=== PATIENT | female | born 1995 | race Caucasian/White ===

== ENCOUNTER 2016-10-22 07:54 | Emergency (ER) | payer OTHER ==
[2016-10-22] MEDS ORDERED: LIDOCAINE 1% MDV 20ML VIAL As Ordered ONE (08:28)
--- NOTE | 2016-10-22 09:24 | EDDOCDS ---
Physician Documentation [facility] Name: Leandro Dawson Age: 21 yrs Sex: Female : 1995 Arrival Date: 10/22/2016 Time: 07:54 Bed I4 / M4 Private MD: Juliette Greenberg Disposition: 10/22/16 08:57 Discharged to Home/Self Care. Impression: Localized swelling, mass and lump, unspecified - right labia, likely allergic reaction. - Condition is Stable. - Discharge Instructions: Allergies. - Prescriptions for Prednisone 20 mg Oral Tablet - take 2 tablet by ORAL route once daily for 5 days; 10 tablet. [place] 5- 325 mg Oral Tablet - take 1 tablet by ORAL route every 6 hours As needed MDD: 4 tabs; 12 tablet. - Medication Reconciliation, Local Pharmacy Hours form. - Follow up: Emergency Department; When: As needed; Reason: Worsening of conditions. Follow up: Private Physician; When: 2 - 3 days; Reason: Wound/Symptom Recheck, Recheck today's complaints, Continuance of care. - Problem is new. - Symptoms are unchanged. - Notes: YOUR SYMPTOMS ARE MOST LIKELY FROM A SENSITIVITY OR ALLERGIC REACTION. PLEASE TAKE THE MEDICATIONS PRESCRIBED DIRECTED. RETURN TO THE ER WITH ANY WORSENING SYMPTOMS. YOU CAN KEEP TAKING THE ANTIBIOTIC DIRECTED WELL, IN CASE THERE IS ANY INFECTION IN THE SKIN. Historical: - Allergies: no known allergies; - Home Meds: 1. antibiotic twice a day (Last dose: 10/22/2016) - PMHx: none; - PSHx: surgery as infant; - Social history: Smoking status: Patient states was never smoker of tobacco. No barriers to communication noted, The patient speaks fluent Central African, Speaks appropriately for age. - Family history: Not pertinent. - : The pt / caregiver states he / she is not on anticoagulants. Home medication list is obtained from the patient. - Exposure Risk Screening:: None identified. 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 6 in. (167.64 cm) (R); 09:01 BP 133 / 72; Pulse 100; Resp 18; Temp 98.9; Pulse Ox 98% ; Pain 5/10; jam1 08:01 Body Mass Index 18.56 (52.16 kg, 167.64 cm) kr3 MDM: 08:13 Lidocaine 10 mg/mL (1 %) 10 ml Infiltration once; to bedside, without epi please, thank dt4 you. ordered. 09:03 [facility] Payment Agreement was scanned into [employer] and attached to record. jp5 09:03 Financial registration complete. jp5 Administered Medications: 09:21 Not Given (cancelled per PA): Lidocaine 10 mg/mL (1 %) 10 ml Infiltration once; to [facility] bedside, without epi please, thank you. Signatures: Maria De Jesus Leary, RN RN [facility] Lorna PhippsRN RN kr3 Shira Krishnamurthy, PA-C PA-C dt4 Agata Mckinnon jp5 The chart was reviewed and I authenticate all verbal orders and agree with the evaluation and treatment provided.Attachments: 09:03 [facility] Payment Agreement jp5 MTDD
--- NOTE | 2016-10-22 09:24 | EDDOCDS ---
Nurse's Notes [facility] Name: Leandro Dawson Age: 21 yrs Sex: Female : 1995 Arrival Date: 10/22/2016 Time: 07:54 Bed I4 / M4 Private MD: Juliette Greenberg Diagnosis: Localized swelling, mass and lump, unspecified-right labia, likely allergic reaction Presentation: 10/22 07:58 Presenting complaint: Patient states: reports abscess in vagina which was suppose to be kr3 cut today but was delayed so wants it done here. Adult Sepsis Screening: The patient does not have new or worsening altered mentation. Patient's respiratory rate is less than 22. Systolic blood pressure is greater than 100. Patient has a qSOFA score of 0- Negative Sepsis Screen. Suicide/Homicide risk assessment- the patient denies having any suicidal and/or homicidal ideations and does not present with any other emotional, behavioral or mental health complaints. 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 Transition of care: patient was not received from another setting of care. 07:58 Acuity: MAX Level 4 kr3 07:58 Method Of Arrival: Walkin/Carried/Asstd kr3 Triage Assessment: 08:01 General: Appears in no apparent distress, comfortable, Behavior is cooperative. Pain: kr3 Location: 'right side of vagina' Pain currently is 4 out of 10 on a pain scale. Pt Declines HIV testing. Neurological: No deficits noted. Respiratory: Respiratory effort is even, unlabored. : Reports 'thing may be leaking'. Derm: Skin is normal. 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 antibiotic twice a day (Last dose: 10/22/2016) - PMHx: none; - PSHx: surgery as ; - Social history: Smoking status: Patient states was never smoker of tobacco. No barriers to communication noted, The patient speaks fluent Austrian, Speaks appropriately for age. - Family history: Not pertinent. - : The pt / caregiver states he / she is not on anticoagulants. Home medication list is obtained from the patient. - Exposure Risk Screening:: None identified. Screenin:53 Screening information is obtained from the patient. Primary language is Austrian. Fall jam1 risk: No risks identified. Assistance ADL's: requires no assistance with activities of daily living. Abuse/DV Screen: The patient / caregiver reports he/she is: not in a situation that causes fear, pain or injury. Nutritional screening: No deficits noted. Exposure Risk Screening: None identified. Advance Directives: Currently, there is no health care proxy. There is no active DNR order. There is no living will. There is no Power of Account Specialist. Advance directive information has not previously been placed in an [facility] medical record. Further advance directive information is declined. home support is adequate. Assessment: 08:45 General: Appears uncomfortable, Behavior is appropriate for age, cooperative. srm Neurological: No deficits noted. : swelling to lower right labia. Vital Signs: 08:01 BP 155 / 91; Pulse 120; Resp 16; Temp 98.4(O); Pulse Ox 98% on R/A; Weight 52.16 kg kr3 (R); Height 5 ft. 6 in. (167.64 cm) (R); 09:01 BP 133 / 72; Pulse 100; Resp 18; Temp 98.9; Pulse Ox 98% ; Pain 5/10; jam1 08:01 Body Mass Index 18.56 (52.16 kg, 167.64 cm) kr3 Vitals: 08:01 Log In Time: October 22, 2016 at 07:52. kr3 ED Course: 07:56 Patient visited by Nette Arana. mm15 07:56 Juliette Greenberg is Private Physician. mm15 07:56 Patient moved to Waiting mm15 08:00 Triage Initiated kr3 08:04 Patient moved to I4 / M4 kr3 08:05 Shira Krishnamurthy [facility]-C [facility]. dt4 08:05 Marybel Leger MD is Attending Physician. dt4 08:05 Patient visited by Shira Krishnamurthy PA-C. dt4 08:10 Pt greeted and oriented to ED. Patient advised of names of staff involved in care, jam1 location of call peterson, wait times and NPO status. Patient has correct armband on for positive identification. Placed in gown. Bed in low position. Call light in reach. Side rails up X 1. Adult w/ patient. Door closed. 08:45 The patient / caregiver is instructed regarding the plan of care and ED course. srm 08:45 No IV's were initiated during this patient's visit. No procedures done that require srm assistance. 09:03 [facility] Payment Agreement was scanned into [employer] and attached to record. jp5 Administered Medications: 09:21 Not Given (cancelled per PA): Lidocaine 10 mg/mL (1 %) 10 ml Infiltration once; to [facility] bedside, without epi please, thank you. Order Results: There are currently no results for this order. Outcome: 08:45 Discharge Assessment: Patient awake, alert and oriented x 3. No cognitive and/or srm functional deficits noted. Patient verbalized understanding of disposition instructions. patient administered narcotics - no. The following High Risk Discharge criteria are identified: None. Discharged to home ambulatory, with significant other. Condition: stable. Discharge instructions given to patient, Instructed on discharge instructions, follow up and referral plans. medication usage, Demonstrated understanding of instructions, medications, Pt was receptive of discharge instructions/ teaching. Prescriptions given X 2. No special radiology studies were completed. Property sent home with patient. 08:57 Discharge ordered by Provider. dt4 09:24 Patient left the ED. [facility] Signatures: Maria De Jesus Leary, RN RN Nichole Garcia, COLLEGE SPORTS ASSISTANT COLLEGE SPORTS ASSISTANT jam1 Lorna Phipps,RN RN [email or web address] Nette Arana mm15 Shira Krishnamurthy, PA-C PA-C dt4 Agata Mckinnon jp5 RYAN
--- NOTE | 2016-10-24 10:25 | EDDOCDS ---
Nurse's Notes [facility] Name: Leandro Dawson Age: 21 yrs Sex: Female : 1995 Arrival Date: 10/22/2016 Time: 07:54 Bed I4 / M4 Private MD: Juliette Greenberg Diagnosis: Localized swelling, mass and lump, unspecified-right labia, likely allergic reaction Presentation: 10/22 07:58 Presenting complaint: Patient states: reports abscess in vagina which was suppose to be kr3 cut today but was delayed so wants it done here. Adult Sepsis Screening: The patient does not have new or worsening altered mentation. Patient's respiratory rate is less than 22. Systolic blood pressure is greater than 100. Patient has a qSOFA score of 0- Negative Sepsis Screen. Suicide/Homicide risk assessment- the patient denies having any suicidal and/or homicidal ideations and does not present with any other emotional, behavioral or mental health complaints. 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 Transition of care: patient was not received from another setting of care. 07:58 Acuity: MAX Level 4 kr3 07:58 Method Of Arrival: Walkin/Carried/Asstd kr3 Triage Assessment: 08:01 General: Appears in no apparent distress, comfortable, Behavior is cooperative. Pain: kr3 Location: 'right side of vagina' Pain currently is 4 out of 10 on a pain scale. Pt Declines HIV testing. Neurological: No deficits noted. Respiratory: Respiratory effort is even, unlabored. : Reports 'thing may be leaking'. Derm: Skin is normal. 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 antibiotic twice a day (Last dose: 10/22/2016) - PMHx: none; - PSHx: surgery as ; - Social history: Smoking status: Patient states was never smoker of tobacco. No barriers to communication noted, The patient speaks fluent Bahamian, Speaks appropriately for age. - Family history: Not pertinent. - : The pt / caregiver states he / she is not on anticoagulants. Home medication list is obtained from the patient. - Exposure Risk Screening:: None identified. Screenin:53 Screening information is obtained from the patient. Primary language is Bahamian. Fall jam1 risk: No risks identified. Assistance ADL's: requires no assistance with activities of daily living. Abuse/DV Screen: The patient / caregiver reports he/she is: not in a situation that causes fear, pain or injury. Nutritional screening: No deficits noted. Exposure Risk Screening: None identified. Advance Directives: Currently, there is no health care proxy. There is no active DNR order. There is no living will. There is no Power of Student Activities Director. Advance directive information has not previously been placed in an [facility] medical record. Further advance directive information is declined. home support is adequate. Assessment: 08:45 General: Appears uncomfortable, Behavior is appropriate for age, cooperative. srm Neurological: No deficits noted. : swelling to lower right labia. Vital Signs: 08:01 BP 155 / 91; Pulse 120; Resp 16; Temp 98.4(O); Pulse Ox 98% on R/A; Weight 52.16 kg kr3 (R); Height 5 ft. 6 in. (167.64 cm) (R); 09:01 BP 133 / 72; Pulse 100; Resp 18; Temp 98.9; Pulse Ox 98% ; Pain 5/10; jam1 08:01 Body Mass Index 18.56 (52.16 kg, 167.64 cm) kr3 Vitals: 08:01 Log In Time: October 22, 2016 at 07:52. kr3 ED Course: 07:56 Patient visited by Nette Arana. mm15 07:56 Juliette Greenberg is Private Physician. mm15 07:56 Patient moved to Waiting mm15 08:00 Triage Initiated kr3 08:04 Patient moved to I4 / M4 kr3 08:05 Shira Krishnamur[facility]-C [facility]. dt4 08:05 Marybel Leger MD is Attending Physician. dt4 08:05 Patient visited by Shira Krishnamurthy PA-C. dt4 08:10 Pt greeted and oriented to ED. Patient advised of names of staff involved in care, jam1 location of call pteerson, wait times and NPO status. Patient has correct armband on for positive identification. Placed in gown. Bed in low position. Call light in reach. Side rails up X 1. Adult w/ patient. Door closed. 08:45 The patient / caregiver is instructed regarding the plan of care and ED course. srm 08:45 No IV's were initiated during this patient's visit. No procedures done that require srm assistance. 09:03 [facility] Payment Agreement was scanned into [employer] and attached to record. jp5 14:27 T-Sheet-- Draft Copy was scanned into [employer] and attached to record. gb Administered Medications: 09:21 Not Given (cancelled per PA): Lidocaine 10 mg/mL (1 %) 10 ml Infiltration once; to srm bedside, without epi please, thank you. Order Results: There are currently no results for this order. Outcome: 08:45 Discharge Assessment: Patient awake, alert and oriented x 3. No cognitive and/or srm functional deficits noted. Patient verbalized understanding of disposition instructions. patient administered narcotics - no. The following High Risk Discharge criteria are identified: None. Discharged to home ambulatory, with significant other. Condition: stable. Discharge instructions given to patient, Instructed on discharge instructions, follow up and referral plans. medication usage, Demonstrated understanding of instructions, medications, Pt was receptive of discharge instructions/ teaching. Prescriptions given X 2. No special radiology studies were completed. Property sent home with patient. 08:57 Discharge ordered by Provider. dt4 09:24 Patient left the ED. [facility] Signatures: Maria De Jesus Leary, RN RN srm Nichole Kim, WEB CONTENT DEVELOPER WEB CONTENT DEVELOPER jam1 Poonam De La Rosa, Reg Reg Lorna Wick,RN RN navjot3 Nette Arana mm15 Shira Krishnamurthy, PA-C PA-C dt4 Agata Mckinnon jp5 Chart Complete MTDD
--- NOTE | 2016-10-24 10:25 | EDDOCDS ---
Physician Documentation [facility] Name: Leandro Dawson Age: 21 yrs Sex: Female : 1995 Arrival Date: 10/22/2016 Time: 07:54 Bed I4 / M4 Private MD: Juliette Greenberg Disposition: 10/22/16 08:57 Discharged to Home/Self Care. Impression: Localized swelling, mass and lump, unspecified - right labia, likely allergic reaction. - Condition is Stable. - Discharge Instructions: Allergies. - Prescriptions for Prednisone 20 mg Oral Tablet - take 2 tablet by ORAL route once daily for 5 days; 10 tablet. [place] 5- 325 mg Oral Tablet - take 1 tablet by ORAL route every 6 hours As needed MDD: 4 tabs; 12 tablet. - Medication Reconciliation, Local Pharmacy Hours form. - Follow up: Emergency Department; When: As needed; Reason: Worsening of conditions. Follow up: Private Physician; When: 2 - 3 days; Reason: Wound/Symptom Recheck, Recheck today's complaints, Continuance of care. - Problem is new. - Symptoms are unchanged. - Notes: YOUR SYMPTOMS ARE MOST LIKELY FROM A SENSITIVITY OR ALLERGIC REACTION. PLEASE TAKE THE MEDICATIONS PRESCRIBED DIRECTED. RETURN TO THE ER WITH ANY WORSENING SYMPTOMS. YOU CAN KEEP TAKING THE ANTIBIOTIC DIRECTED WELL, IN CASE THERE IS ANY INFECTION IN THE SKIN. Historical: - Allergies: no known allergies; - Home Meds: 1. antibiotic twice a day (Last dose: 10/22/2016) - PMHx: none; - PSHx: surgery as infant; - Social history: Smoking status: Patient states was never smoker of tobacco. No barriers to communication noted, The patient speaks fluent Guamanian, Speaks appropriately for age. - Family history: Not pertinent. - : The pt / caregiver states he / she is not on anticoagulants. Home medication list is obtained from the patient. - Exposure Risk Screening:: None identified. 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 6 in. (167.64 cm) (R); 09:01 BP 133 / 72; Pulse 100; Resp 18; Temp 98.9; Pulse Ox 98% ; Pain 5/10; jam1 08:01 Body Mass Index 18.56 (52.16 kg, 167.64 cm) kr3 MDM: 08:13 Lidocaine 10 mg/mL (1 %) 10 ml Infiltration once; to bedside, without epi please, thank dt4 you. ordered. 09:03 [facility] Payment Agreement was scanned into [employer] and attached to record. jp5 09:03 Financial registration complete. jp5 14:27 T-Sheet-- Draft Copy was scanned into [employer] and attached to record. gb Administered Medications: 09:21 Not Given (cancelled per PA): Lidocaine 10 mg/mL (1 %) 10 ml Infiltration once; to [facility] bedside, without epi please, thank you. Signatures: Maria De Jesus Leary, RN RN [facility] Poonam De La Rosa, Reg Reg Lorna Phipps RN RN kr3 Shira Krishnamurthy, PA-C PA-C dt4 Agata Mckinnon jp5 The chart was reviewed and I authenticate all verbal orders and agree with the evaluation and treatment provided.Attachments: 09:03 [facility] Payment Agreement jp5 14:27 T-Sheet-- Draft Copy gb Chart Complete MTDD
--- NOTE | 2016-10-24 10:25 | EDDOCDS ---
Physician Documentation [facility] Name: Leandro Dawson Age: 21 yrs Sex: Female : 1995 Arrival Date: 10/22/2016 Time: 07:54 Bed I4 / M4 Private MD: Juliette Greenberg Disposition: 10/22/16 08:57 Discharged to Home/Self Care. Impression: Localized swelling, mass and lump, unspecified - right labia, likely allergic reaction. - Condition is Stable. - Discharge Instructions: Allergies. - Prescriptions for Prednisone 20 mg Oral Tablet - take 2 tablet by ORAL route once daily for 5 days; 10 tablet. [place] 5- 325 mg Oral Tablet - take 1 tablet by ORAL route every 6 hours As needed MDD: 4 tabs; 12 tablet. - Medication Reconciliation, Local Pharmacy Hours form. - Follow up: Emergency Department; When: As needed; Reason: Worsening of conditions. Follow up: Private Physician; When: 2 - 3 days; Reason: Wound/Symptom Recheck, Recheck today's complaints, Continuance of care. - Problem is new. - Symptoms are unchanged. - Notes: YOUR SYMPTOMS ARE MOST LIKELY FROM A SENSITIVITY OR ALLERGIC REACTION. PLEASE TAKE THE MEDICATIONS PRESCRIBED DIRECTED. RETURN TO THE ER WITH ANY WORSENING SYMPTOMS. YOU CAN KEEP TAKING THE ANTIBIOTIC DIRECTED WELL, IN CASE THERE IS ANY INFECTION IN THE SKIN. Historical: - Allergies: no known allergies; - Home Meds: 1. antibiotic twice a day (Last dose: 10/22/2016) - PMHx: none; - PSHx: surgery as infant; - Social history: Smoking status: Patient states was never smoker of tobacco. No barriers to communication noted, The patient speaks fluent Turkish, Speaks appropriately for age. - Family history: Not pertinent. - : The pt / caregiver states he / she is not on anticoagulants. Home medication list is obtained from the patient. - Exposure Risk Screening:: None identified. 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 6 in. (167.64 cm) (R); 09:01 BP 133 / 72; Pulse 100; Resp 18; Temp 98.9; Pulse Ox 98% ; Pain 5/10; jam1 08:01 Body Mass Index 18.56 (52.16 kg, 167.64 cm) kr3 MDM: 08:13 Lidocaine 10 mg/mL (1 %) 10 ml Infiltration once; to bedside, without epi please, thank dt4 you. ordered. 09:03 [facility] Payment Agreement was scanned into [employer] and attached to record. jp5 09:03 Financial registration complete. jp5 14:27 T-Sheet-- Draft Copy was scanned into [employer] and attached to record. gb Administered Medications: 09:21 Not Given (cancelled per PA): Lidocaine 10 mg/mL (1 %) 10 ml Infiltration once; to [facility] bedside, without epi please, thank you. Signatures: Maria De Jesus Leary, RN RN [facility] Poonam De La Rosa, Reg Reg Lorna Phipps RN RN kr3 Shira Krishnamurthy, PA-C PA-C dt4 Agata Mckinnon jp5 The chart was reviewed and I authenticate all verbal orders and agree with the evaluation and treatment provided.Attachments: 09:03 [facility] Payment Agreement jp5 14:27 T-Sheet-- Draft Copy gb Chart Complete MTDD
== END 2016-10-22 09:24 | disposition home or self-care (01) ==
LOC: M ED 07:54
DX: Z76.0 Encounter for issue of repeat prescription (principal)

== ENCOUNTER 2016-10-25 19:31 | Emergency (ER) | payer OTHER ==
[2016-10-25] MEDS ORDERED: LIDOCAINE 1% MDV 20ML VIAL As Ordered ONE (20:21)
[2016-10-25] MEDS ORDERED: NORCO, ANEXSIA 5/325MG TABLET (HYDROcodone/ACETAMINOPHEN) As Ordered ONE (21:05)
[2016-10-25] MEDS ORDERED: BACTRIM 160MG/800MG DS TAB As Ordered ONE (21:05)
[2016-10-25 21:16] LABS: BASO # 0.1 K/mm3 (0.0-0.2); BASO % 0.9 % (0.0-1.0); EOS % 0.4 % (0.0-3.0); LARGE UNSTAINED CELL # 0.1 K/mm3 (0.0-0.4); LARGE UNSTAINED CELL % 0.9 % (0.0-4.0); LYMPH # 1.7 K/mm3 (1.5-6.5); LYMPH % 11.5 % (24.0-44.0); MEAN CORPUSCULAR HEMOGLOBIN 27.4 pg (27.0-33.0); MEAN CORPUSCULAR HGB CONC 33.6 g/dl (32.0-36.5); MEAN CORPUSCULAR VOLUME 81.8 fl (80.0-96.0); MONO # 0.8 K/mm3 (0.0-0.8); NEUTROPHILS # 10.7 K/mm3 (1.8-7.7); NEUTROPHILS % 80.3 % (36.0-66.0); PLATELET COUNT, AUTOMATED 339 k/mm3 (150-450); RED CELL DISTRIBUTION WIDTH 13.7 % (11.5-14.5); WHITE BLOOD COUNT 13.3 K/mm3 (4.0-10.0)
[2016-10-25 21:34] LABS: ANION GAP 8 MEQ/L (8-16); BLOOD UREA NITROGEN 11 MG/DL (7-18); CALCIUM LEVEL 9.6 MG/DL (8.5-10.1); CARBON DIOXIDE LEVEL 29 MEQ/L (21-32); CHLORIDE LEVEL 105 MEQ/L (98-107); CREATININE FOR GFR 0.97 MG/DL (0.55-1.02); GLOMERULAR FILTRATION RATE > 60.0 (>60); GLUCOSE, FASTING 105 MG/DL (70-105); POTASSIUM SERUM 3.7 MEQ/L (3.5-5.1); SODIUM LEVEL 142 MEQ/L (136-145)
[2016-10-25] MEDS ORDERED: NORCO 5/325MG TABLET (BULK) As Ordered ONE (22:09)
--- NOTE | 2016-10-25 22:14 | EDDOCDS ---
Physician Documentation [facility] Name: Leandro Dawson Age: 21 yrs Sex: Female : 1995 Arrival Date: 10/25/2016 Time: 19:31 Bed I4 / M4 Private MD: Juliette Greenberg Disposition: 10/25/16 22:02 Discharged to Home/Self Care. Impression: Cutaneous abscess of groin - RIGHT LABIA. - Condition is Stable. - Discharge Instructions: Abscess. - Prescriptions for [place] 5- 325 mg Oral Tablet - take 1 tablet by ORAL route every 6 hours As needed MDD: 4 tabs; 16 tablet. Bactrim DS 800- 160 mg Oral Tablet - take 1 tablet by ORAL route every 12 hours for 10 days; 20 tablet. - Medication Reconciliation, Local Pharmacy Hours form. - Follow up: RUTH[facility] Barry; When: 2 - 3 days; Reason: Recheck today's complaints, Continuance of care. - Problem is new. - Symptoms have improved. - Notes: STOP USING PREDNISONE, START BACTRIM, CONTINUE WITH NORCO, USE WARM BATHES 3 TIMES PER DAY, FOLLOW UP WITH MARY SETHI OB, DR COPPOLA WAS CONSULTED REGARDING YOUR CASE, RETURN TO THE ER IF THE SYMPTOMS WORSEN OR BECOME CONCERNING Historical: - Allergies: no known allergies; - Home Meds: 1. prednisone 20 mg Oral tab 2 tabs per day for 5 days 2. [place] 5-325 mg Oral tab 1 tab every 6 hours as needed - PMHx: none; - PSHx: surgery as infant; - Social history: Smoking status: Patient states was never smoker of tobacco. No barriers to communication noted, The patient speaks fluent Mongolian, Speaks appropriately for age. - Family history: Not pertinent. - : The pt / caregiver states he / she is not on anticoagulants. Home medication list is obtained from pill bottles. - Exposure Risk Screening:: None identified. 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 6 in. (167.64 cm) (R); 20:52 BP 137 / 70; Pulse 115; Resp 20; Temp 98.9; Pulse Ox 95% ; Pain 6/10; ajs 22:01 BP 134 / 72; Pulse 82; Resp 18; Temp 98.9; Pulse Ox 95% ; Pain 0/10; ajs 19:32 Body Mass Index 18.56 (52.16 kg, 167.64 cm) dd6 MDM: 20:19 Lidocaine 10 mg/mL (1 %) 10 ml Infiltration once; to bedside ordered. ck7 20:19 Set up pelvic ordered. ck7 20:55 IV Saline Lock ordered. ck7 20:55 NS 0.9% 1000 ml IV at bolus once ordered. ck7 20:55 HYDROcodone-acetaminophen 5 mg-325 mg 1 tabs PO once ordered. ck7 20:55 Trimethoprim-Sulfamethoxazole 160 mg-800 mg (DS) 1 tabs PO once ordered. ck7 20:57 CBC with Diff Ordered. EDMS 20:57 MED Profile Ordered. EDMS 21:36 CBC with Diff Reviewed. ck7 21:36 MED Profile Reviewed. ck7 22:03 HYDROcodone-acetaminophen 4 pack- 5 mg-325 mg 1 packets PO Per package directions; ck7 Dispense with patient. 1 po q4h prn for pain ordered. Administered Medications: 21:09 Drug: NS 0.9% 1000 ml [sodium chloride 0.9 % intravenous solution] Route: IV; Rate: kas2 bolus; Site: left antecubital; 22:12 Follow up: IV Status: Completed infusion; IV Intake: 500ml kas2 21:09 Drug: HYDROcodone-acetaminophen 1 tabs [hydrocodone 5 mg-acetaminophen 325 mg tablet (1 kas2 tabs)] Route: PO; 21:09 Drug: Trimethoprim-Sulfamethoxazole 1 tabs [sulfamethoxazole 800 mg-trimethoprim 160 mg kas2 tablet (1 tabs)] Route: PO; 22:11 Drug: HYDROcodone-acetaminophen 4 pack- 1 packets [hydrocodone 5 mg-acetaminophen 325 nn1 mg tablet (1 tabs)] {Co-Signature: kas2 (Kendra Hilton RN).} Route: PO; Signatures: Dispatcher [employer] EDMS Patricia Yanes RN RN ld5 Chato Noble, SLIM-C RPA-Cck7 Kendra Hilton RN RN kas2 Mali Rdz RN1 Kendra Hilton RN kas2 MARAD
--- NOTE | 2016-10-25 22:14 | EDDOCDS ---
Nurse's Notes [facility] Name: Leandro Dawson Age: 21 yrs Sex: Female : 1995 Arrival Date: 10/25/2016 Time: 19:31 Bed I4 / M4 Private MD: Juliette Greenberg Diagnosis: Cutaneous abscess of groin-RIGHT LABIA Presentation: 10/25 19:38 Presenting complaint: Patient states: Seen here Friday and diagnosed with reaction ld5 to condom. Presents to ER with increasing vaginal pain. "The meds they gave me aren't working". Pt reports being seen at [facility] on Friday and was supposed to go in on Friday for "surgery for an abscess". [facility] was closed on Friday due to weather so pt came here on Friday and was told it was not an abscess but instead an irritation from a condom. Adult Sepsis Screening: The patient does not have new or worsening altered mentation. Patient's respiratory rate is less than 22. Systolic blood pressure is greater than 100. Patient has a qSOFA score of 0- Negative Sepsis Screen. Suicide/Homicide risk assessment- the patient denies having any suicidal and/or homicidal ideations and does not present with any other emotional, behavioral or mental health complaints. Status: The patient is a dependent. Transition of care: patient was not received from another setting of care. 19:38 Acuity: MAX Level 4 ld5 19:38 Method Of Arrival: Walkin/Carried/Asstd ld5 Triage Assessment: 19:41 General: Appears in no apparent distress. Pain: Location: groin Pain currently is 5 out ld5 of 10 on a pain scale. HIV screening NA for this visit Offered previously. Neurological: Level of Consciousness is awake, alert. Respiratory: Airway is patent Respiratory effort is even, unlabored. 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 prednisone 20 mg Oral tab 2 tabs per day for 5 days 2. [place] 5-325 mg Oral tab 1 tab every 6 hours as needed - PMHx: none; - PSHx: surgery as ; - Social history: Smoking status: Patient states was never smoker of tobacco. No barriers to communication noted, The patient speaks fluent Russian, Speaks appropriately for age. - Family history: Not pertinent. - : The pt / caregiver states he / she is not on anticoagulants. Home medication list is obtained from pill bottles. - Exposure Risk Screening:: None identified. Screenin:24 Screening information is obtained from the patient. Fall risk: No risks identified. kas2 Assistance ADL's: requires no assistance with activities of daily living. Abuse/DV Screen: The patient / caregiver reports he/she is: not in a situation that causes fear, pain or injury. Nutritional screening: No deficits noted. Advance Directives: Currently, there is no health care proxy. There is no active DNR order. There is no living will. There is no Power of Hand Packer/Packager. home support is adequate. Assessment: 20:21 General: Appears in no apparent distress, uncomfortable, well nourished, well groomed, kas2 Behavior is appropriate for age, cooperative. Pain: Location: pelvis and groin Pain currently is 6 out of 10 on a pain scale. Neurological: Level of Consciousness is awake, alert, Oriented to person, place. Respiratory: Airway is patent Respiratory effort is even, unlabored, Respiratory pattern is regular, symmetrical. : Swelling noted on labia. Derm: Skin is intact, Skin is dry, Skin is pink, warm & dry. Skin temperature is warm. Musculoskeletal: Range of motion intact in all extremities. 21:33 General: Patient laying in bed with at bedside. States pain in vaginal area is kas2 decreased to 3/10. Appears comfortable. No distress noted. Call peterson within reach. Will continue to monitor.. Vital Signs: 19:32 BP 161 / 82; Pulse 112; Resp 18 S; Temp 98.1(O); Pulse Ox 99% on R/A; Weight 52.16 kg dd6 (R); Height 5 ft. 6 in. (167.64 cm) (R); 20:52 BP 137 / 70; Pulse 115; Resp 20; Temp 98.9; Pulse Ox 95% ; Pain 6/10; ajs 22:01 BP 134 / 72; Pulse 82; Resp 18; Temp 98.9; Pulse Ox 95% ; Pain 0/10; ajs 19:32 Body Mass Index 18.56 (52.16 kg, 167.64 cm) dd6 Vitals: 19:32 Log In Time: October 25, 2016 at 19:30. dd6 ED Course: 19:32 Patient visited by Ronny Vann PCA. dd6 19:32 Juliette Greenberg is Private Physician. dd6 19:32 Patient moved to Waiting dd6 19:33 Patient moved to Pre RCE dd6 19:39 Triage Initiated ld5 19:42 Patient visited by Patricia Yanes,SUPA. ld5 19:44 Patient visited by Patricia Yanes RN. ld5 20:05 Patient moved to Triage 1 jo3 20:06 Chato Noble RPA-C is PHCP. ck7 20:06 Gregory Vazquez DO is Attending Physician. ck7 20:06 Patient visited by Chato Noble RPA-C. ck7 20:16 Patient moved to I4 / M4 jo3 20:25 Patient visited by Kendra Hilton RN. kas2 20:37 Patient visited by Kendra Hilton RN. kas2 20:53 Patient visited by Yessi Wiggins. ajs 21:07 MED Profile Sent. ajs 21:07 CBC with Diff Sent. ajs 21:09 Inserted saline lock: 22 gauge in left antecubital area and blood collected. The kas2 patient tolerated the procedure well. No procedures done that require assistance. 21:10 Patient visited by Kendra Hilton RN. kas2 21:34 Patient visited by Kendra Hilton RN. kas2 22:01 Patient visited by Yessi Wiggins. ajs 22:01 Arsenio Villegas, OB is Referral Physician. ck7 22:11 The patient / caregiver is instructed regarding the plan of care and ED course. kas2 22:11 Discontinued IV bleeding controlled, pressure dressing applied, No redness/swelling at kas2 site. Administered Medications: 21:09 Drug: NS 0.9% 1000 ml [sodium chloride 0.9 % intravenous solution] Route: IV; Rate: kas2 bolus; Site: left antecubital; 22:12 Follow up: IV Status: Completed infusion; IV Intake: 500ml kas2 21:09 Drug: HYDROcodone-acetaminophen 1 tabs [hydrocodone 5 mg-acetaminophen 325 mg tablet (1 kas2 tabs)] Route: PO; 21:09 Drug: Trimethoprim-Sulfamethoxazole 1 tabs [sulfamethoxazole 800 mg-trimethoprim 160 mg kas2 tablet (1 tabs)] Route: PO; 22:11 Drug: HYDROcodone-acetaminophen 4 pack- 1 packets [hydrocodone 5 mg-acetaminophen 325 nn1 mg tablet (1 tabs)] {Co-Signature: kas2 (Kendra Hilton RN).} Route: PO; Intake: 22:12 IV: 500.00ml; Total: 500.00ml. kas2 Order Results: Lab Order: CBC with Diff; SPEC'M 10/25/16 21:02 Test: WHITE BLOOD COUNT; Value: 13.3; Range: 4.0-10.0; Abnormal: Above high normal; Units: K/mm3; Status: F Test: RED BLOOD COUNT; Value: 5.09; Range: 4.00-5.40; Units: M/mm3; Status: F Test: HEMOGLOBIN; Value: 14.0; Range: 12.0-16.0; Units: g/dl; Status: F Test: HEMATOCRIT; Value: 41.6; Range: 36.0-47.0; Units: %; Status: F Test: MEAN CORPUSCULAR VOLUME; Value: 81.8; Range: 80.0-96.0; Units: fl; Status: F Test: MEAN CORPUSCULAR HEMOGLOBIN; Value: 27.4; Range: 27.0-33.0; Units: pg; Status: F Test: MEAN CORPUSCULAR HGB CONC; Value: 33.6; Range: 32.0-36.5; Units: g/dl; Status: F Test: RED CELL DISTRIBUTION WIDTH; Value: 13.7; Range: 11.5-14.5; Units: %; Status: F Test: PLATELET COUNT, AUTOMATED; Value: 339; Range: 150-450; Units: k/mm3; Status: F Test: NEUTROPHILS %; Value: 80.3; Range: 36.0-66.0; Abnormal: Above high normal; Units: %; Status: F Test: LYMPH %; Value: 11.5; Range: 24.0-44.0; Abnormal: Below low normal; Units: %; Status: F Test: MONO %; Value: 6.0; Range: 0.0-5.0; Abnormal: Above high normal; Units: %; Status: F Test: EOS %; Value: 0.4; Range: 0.0-3.0; Units: %; Status: F Test: BASO %; Value: 0.9; Range: 0.0-1.0; Units: %; Status: F Test: LARGE UNSTAINED CELL %; Value: 0.9; Range: 0.0-4.0; Units: %; Status: F Test: NEUTROPHILS #; Value: 10.7; Range: 1.8-7.7; Abnormal: Above high normal; Units: K/mm3; Status: F Test: LYMPH #; Value: 1.7; Range: 1.5-6.5; Units: K/mm3; Status: F Test: MONO #; Value: 0.8; Range: 0.0-0.8; Units: K/mm3; Status: F Test: EOS #; Value: 0.0; Range: 0.0-0.50; Units: K/mm3; Status: F Test: BASO #; Value: 0.1; Range: 0.0-0.2; Units: K/mm3; Status: F Test: LARGE UNSTAINED CELL #; Value: 0.1; Range: 0.0-0.4; Units: K/mm3; Status: F Lab Order: MED Profile; SPEC'M 10/25/16 21:02 Test: GLUCOSE, FASTING; Value: 105; Range: 70-105; Units: MG/DL; Status: F Test: BLOOD UREA NITROGEN; Value: 11; Range: 7-18; Units: MG/DL; Status: F Test: CREATININE FOR GFR; Value: 0.97; Range: 0.55-1.02; Units: MG/DL; Status: F Test: GLOMERULAR FILTRATION RATE; Value: > 60.0; Range: >60; Status: F Test: SODIUM LEVEL; Value: 142; Range: 136-145; Units: MEQ/L; Status: F Test: POTASSIUM SERUM; Value: 3.7; Range: 3.5-5.1; Units: MEQ/L; Status: F Test: CHLORIDE LEVEL; Value: 105; Range: 98-107; Units: MEQ/L; Status: F Test: CARBON DIOXIDE LEVEL; Value: 29; Range: 21-32; Units: MEQ/L; Status: F Test: ANION GAP; Value: 8; Range: 8-16; Units: MEQ/L; Status: F Test: CALCIUM LEVEL; Value: 9.6; Range: 8.5-10.1; Units: MG/DL; Status: F Test Note: ; Units are mL/min/1.73 m2 Chronic Kidney Disease Staging per NKF: Stage I & II GFR >=60 Normal to Mildly Decreased Stage III GFR 30-59 Moderately Decreased Stage IV GFR 15-29 Severely Decreased Stage V GFR <15 Very Little GFR Left ESRD GFR <15 on 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 ck7 22:10 Discharge Assessment: patient administered narcotics - yes. Pt provided with safe kas2 discharge. The following High Risk Discharge criteria are identified: None. Discharged to home ambulatory, with significant other. Condition: good Condition: stable Condition: improved. No special radiology studies were completed. Property :Personal belongings accompany Pt. 22:13 Patient left the ED. kas2 Signatures: Jewell Lopez,RN RN jo3 Ronny Vann, KIAN HOOD MAKER dd6 Patricia YanesRN SUPA [email or web address] Yessi iWggins Christopher, RPA-C RPA-Cck7 Mali RdzRN RN [email or web address] Kendra Hilton RN RN kas2 Kendra landis2 Corrections: (The following items were deleted from the chart) 19:44 19:38 Presenting complaint: Patient states: Seen here Friday and diagnosed with ld5 infection due to reaction to condom. Presents to ER with increasing vaginal pain. "The meds they gave me aren't working" ld5 MTDD
--- NOTE | 2016-10-27 23:14 | EDDOCDS ---
Physician Documentation [facility] Name: Leandro Dawson Age: 21 yrs Sex: Female : 1995 Arrival Date: 10/25/2016 Time: 19:31 Bed I4 / M4 Private MD: Juliette Greenberg Disposition: 10/25/16 22:02 Discharged to Home/Self Care. Impression: Cutaneous abscess of groin - RIGHT LABIA. - Condition is Stable. - Discharge Instructions: Abscess. - Prescriptions for [place] 5- 325 mg Oral Tablet - take 1 tablet by ORAL route every 6 hours As needed MDD: 4 tabs; 16 tablet. Bactrim DS 800- 160 mg Oral Tablet - take 1 tablet by ORAL route every 12 hours for 10 days; 20 tablet. - Medication Reconciliation, Local Pharmacy Hours form. - Follow up: RUTHY Barry; When: 2 - 3 days; Reason: Recheck today's complaints, Continuance of care. - Problem is new. - Symptoms have improved. - Notes: STOP USING PREDNISONE, START BACTRIM, CONTINUE WITH NORCO, USE WARM BATHES 3 TIMES PER DAY, FOLLOW UP WITH MARY SETHI OB, DR COPPOLA WAS CONSULTED REGARDING YOUR CASE, RETURN TO THE ER IF THE SYMPTOMS WORSEN OR BECOME CONCERNING Historical: - Allergies: no known allergies; - Home Meds: 1. prednisone 20 mg Oral tab 2 tabs per day for 5 days 2. [place] 5-325 mg Oral tab 1 tab every 6 hours as needed - PMHx: none; - PSHx: surgery as ; - Social history: Smoking status: Patient states was never smoker of tobacco. No barriers to communication noted, The patient speaks fluent Cymro, Speaks appropriately for age. - Family history: Not pertinent. - : The pt / caregiver states he / she is not on anticoagulants. Home medication list is obtained from pill bottles. - Exposure Risk Screening:: None identified. 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 6 in. (167.64 cm) (R); 20:52 BP 137 / 70; Pulse 115; Resp 20; Temp 98.9; Pulse Ox 95% ; Pain 6/10; ajs 22:01 BP 134 / 72; Pulse 82; Resp 18; Temp 98.9; Pulse Ox 95% ; Pain 0/10; ajs 19:32 Body Mass Index 18.56 (52.16 kg, 167.64 cm) dd6 MDM: 20:19 Lidocaine 10 mg/mL (1 %) 10 ml Infiltration once; to bedside ordered. ck7 20:19 Set up pelvic ordered. ck7 20:55 IV Saline Lock ordered. ck7 20:55 NS 0.9% 1000 ml IV at bolus once ordered. ck7 20:55 HYDROcodone-acetaminophen 5 mg-325 mg 1 tabs PO once ordered. ck7 20:55 Trimethoprim-Sulfamethoxazole 160 mg-800 mg (DS) 1 tabs PO once ordered. ck7 20:57 CBC with Diff Ordered. EDMS 20:57 MED Profile Ordered. EDMS 21:36 CBC with Diff Reviewed. ck7 21:36 MED Profile Reviewed. ck7 22:03 HYDROcodone-acetaminophen 4 pack- 5 mg-325 mg 1 packets PO Per package directions; ck7 Dispense with patient. 1 po q4h prn for pain ordered. 22:35 [facility] Payment Agreement was scanned into [employer] and attached to record. [facility] 22:35 Financial registration complete. [facility] 10/26 07:42 T-Sheet-- Draft Copy was scanned into [employer] and attached to record. [facility] Administered Medications: 10/25 21:09 Drug: NS 0.9% 1000 ml [sodium chloride 0.9 % intravenous solution] Route: IV; Rate: kas2 bolus; Site: left antecubital; 22:12 Follow up: IV Status: Completed infusion; IV Intake: 500ml kas2 21:09 Drug: HYDROcodone-acetaminophen 1 tabs [hydrocodone 5 mg-acetaminophen 325 mg tablet (1 kas2 tabs)] Route: PO; 21:09 Drug: Trimethoprim-Sulfamethoxazole 1 tabs [sulfamethoxazole 800 mg-trimethoprim 160 mg kas2 tablet (1 tabs)] Route: PO; 22:11 Drug: HYDROcodone-acetaminophen 4 pack- 1 packets [hydrocodone 5 mg-acetaminophen 325 nn1 mg tablet (1 tabs)] {Co-Signature: kas2 (Kendra Hilton RN).} Route: PO; Signatures: Dispatcher [employer] Patricia Friedman,RN RN ld5 Chato Noble, DALLASC RPA-Cck7 Olimpia Scott Kim, RN RN kas2 Marybel Smallwood Nikkole RN nn1 Kendra landis2 The chart was reviewed and I authenticate all verbal orders and agree with the evaluation and treatment provided.Attachments: 22:35 [facility] Payment Agreement gjb 10/26 07:42 T-Sheet-- Draft Copy [facility] Chart Complete MTDD
--- NOTE | 2016-10-27 23:14 | EDDOCDS ---
Physician Documentation [facility] Name: Leandro Dawson Age: 21 yrs Sex: Female : 1995 Arrival Date: 10/25/2016 Time: 19:31 Bed I4 / M4 Private MD: Juliette Greenberg Disposition: 10/25/16 22:02 Discharged to Home/Self Care. Impression: Cutaneous abscess of groin - RIGHT LABIA. - Condition is Stable. - Discharge Instructions: Abscess. - Prescriptions for [place] 5- 325 mg Oral Tablet - take 1 tablet by ORAL route every 6 hours As needed MDD: 4 tabs; 16 tablet. Bactrim DS 800- 160 mg Oral Tablet - take 1 tablet by ORAL route every 12 hours for 10 days; 20 tablet. - Medication Reconciliation, Local Pharmacy Hours form. - Follow up: RUTHY Barry; When: 2 - 3 days; Reason: Recheck today's complaints, Continuance of care. - Problem is new. - Symptoms have improved. - Notes: STOP USING PREDNISONE, START BACTRIM, CONTINUE WITH NORCO, USE WARM BATHES 3 TIMES PER DAY, FOLLOW UP WITH MARY SETHI OB, DR COPPOLA WAS CONSULTED REGARDING YOUR CASE, RETURN TO THE ER IF THE SYMPTOMS WORSEN OR BECOME CONCERNING Historical: - Allergies: no known allergies; - Home Meds: 1. prednisone 20 mg Oral tab 2 tabs per day for 5 days 2. [place] 5-325 mg Oral tab 1 tab every 6 hours as needed - PMHx: none; - PSHx: surgery as ; - Social history: Smoking status: Patient states was never smoker of tobacco. No barriers to communication noted, The patient speaks fluent Ghanaian, Speaks appropriately for age. - Family history: Not pertinent. - : The pt / caregiver states he / she is not on anticoagulants. Home medication list is obtained from pill bottles. - Exposure Risk Screening:: None identified. 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 6 in. (167.64 cm) (R); 20:52 BP 137 / 70; Pulse 115; Resp 20; Temp 98.9; Pulse Ox 95% ; Pain 6/10; ajs 22:01 BP 134 / 72; Pulse 82; Resp 18; Temp 98.9; Pulse Ox 95% ; Pain 0/10; ajs 19:32 Body Mass Index 18.56 (52.16 kg, 167.64 cm) dd6 MDM: 20:19 Lidocaine 10 mg/mL (1 %) 10 ml Infiltration once; to bedside ordered. ck7 20:19 Set up pelvic ordered. ck7 20:55 IV Saline Lock ordered. ck7 20:55 NS 0.9% 1000 ml IV at bolus once ordered. ck7 20:55 HYDROcodone-acetaminophen 5 mg-325 mg 1 tabs PO once ordered. ck7 20:55 Trimethoprim-Sulfamethoxazole 160 mg-800 mg (DS) 1 tabs PO once ordered. ck7 20:57 CBC with Diff Ordered. EDMS 20:57 MED Profile Ordered. EDMS 21:36 CBC with Diff Reviewed. ck7 21:36 MED Profile Reviewed. ck7 22:03 HYDROcodone-acetaminophen 4 pack- 5 mg-325 mg 1 packets PO Per package directions; ck7 Dispense with patient. 1 po q4h prn for pain ordered. 22:35 [facility] Payment Agreement was scanned into [employer] and attached to record. [facility] 22:35 Financial registration complete. [facility] 10/26 07:42 T-Sheet-- Draft Copy was scanned into [employer] and attached to record. [facility] Administered Medications: 10/25 21:09 Drug: NS 0.9% 1000 ml [sodium chloride 0.9 % intravenous solution] Route: IV; Rate: kas2 bolus; Site: left antecubital; 22:12 Follow up: IV Status: Completed infusion; IV Intake: 500ml kas2 21:09 Drug: HYDROcodone-acetaminophen 1 tabs [hydrocodone 5 mg-acetaminophen 325 mg tablet (1 kas2 tabs)] Route: PO; 21:09 Drug: Trimethoprim-Sulfamethoxazole 1 tabs [sulfamethoxazole 800 mg-trimethoprim 160 mg kas2 tablet (1 tabs)] Route: PO; 22:11 Drug: HYDROcodone-acetaminophen 4 pack- 1 packets [hydrocodone 5 mg-acetaminophen 325 nn1 mg tablet (1 tabs)] {Co-Signature: kas2 (Kendra Hilton RN).} Route: PO; Signatures: Dispatcher [employer] Patricia Friedman,RN RN ld5 Chato Noble, DALLASC RPA-Cck7 Olimpia Scott Kim, RN RN kas2 Marybel Smallwood Nikkole RN nn1 Kendra landis2 The chart was reviewed and I authenticate all verbal orders and agree with the evaluation and treatment provided.Attachments: 22:35 [facility] Payment Agreement gjb 10/26 07:42 T-Sheet-- Draft Copy [facility] Chart Complete MTDD
--- NOTE | 2016-10-27 23:14 | EDDOCDS ---
Nurse's Notes [facility] Name: Leandro Dawson Age: 21 yrs Sex: Female : 1995 Arrival Date: 10/25/2016 Time: 19:31 Bed I4 / M4 Private MD: Juliette Greenberg Diagnosis: Cutaneous abscess of groin-RIGHT LABIA Presentation: 10/25 19:38 Presenting complaint: Patient states: Seen here Friday and diagnosed with reaction ld5 to condom. Presents to ER with increasing vaginal pain. "The meds they gave me aren't working". Pt reports being seen at [place] on Friday and was supposed to go in on Friday for "surgery for an abscess". [facility] was closed on Friday due to weather so pt came here on Friday and was told it was not an abscess but instead an irritation from a condom. Adult Sepsis Screening: The patient does not have new or worsening altered mentation. Patient's respiratory rate is less than 22. Systolic blood pressure is greater than 100. Patient has a qSOFA score of 0- Negative Sepsis Screen. Suicide/Homicide risk assessment- the patient denies having any suicidal and/or homicidal ideations and does not present with any other emotional, behavioral or mental health complaints. Status: The patient is a dependent. Transition of care: patient was not received from another setting of care. 19:38 Acuity: MAX Level 4 ld5 19:38 Method Of Arrival: Walkin/Carried/Asstd ld5 Triage Assessment: 19:41 General: Appears in no apparent distress. Pain: Location: groin Pain currently is 5 out ld5 of 10 on a pain scale. HIV screening NA for this visit Offered previously. Neurological: Level of Consciousness is awake, alert. Respiratory: Airway is patent Respiratory effort is even, unlabored. 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 prednisone 20 mg Oral tab 2 tabs per day for 5 days 2. [place] 5-325 mg Oral tab 1 tab every 6 hours as needed - PMHx: none; - PSHx: surgery as ; - Social history: Smoking status: Patient states was never smoker of tobacco. No barriers to communication noted, The patient speaks fluent Swiss, Speaks appropriately for age. - Family history: Not pertinent. - : The pt / caregiver states he / she is not on anticoagulants. Home medication list is obtained from pill bottles. - Exposure Risk Screening:: None identified. Screenin:24 Screening information is obtained from the patient. Fall risk: No risks identified. kas2 Assistance ADL's: requires no assistance with activities of daily living. Abuse/DV Screen: The patient / caregiver reports he/she is: not in a situation that causes fear, pain or injury. Nutritional screening: No deficits noted. Advance Directives: Currently, there is no health care proxy. There is no active DNR order. There is no living will. There is no Power of Water Purifier Operator. home support is adequate. Assessment: 20:21 General: Appears in no apparent distress, uncomfortable, well nourished, well groomed, kas2 Behavior is appropriate for age, cooperative. Pain: Location: pelvis and groin Pain currently is 6 out of 10 on a pain scale. Neurological: Level of Consciousness is awake, alert, Oriented to person, place. Respiratory: Airway is patent Respiratory effort is even, unlabored, Respiratory pattern is regular, symmetrical. : Swelling noted on labia. Derm: Skin is intact, Skin is dry, Skin is pink, warm & dry. Skin temperature is warm. Musculoskeletal: Range of motion intact in all extremities. 21:33 General: Patient laying in bed with at bedside. States pain in vaginal area is kas2 decreased to 3/10. Appears comfortable. No distress noted. Call peterson within reach. Will continue to monitor.. Vital Signs: 19:32 BP 161 / 82; Pulse 112; Resp 18 S; Temp 98.1(O); Pulse Ox 99% on R/A; Weight 52.16 kg dd6 (R); Height 5 ft. 6 in. (167.64 cm) (R); 20:52 BP 137 / 70; Pulse 115; Resp 20; Temp 98.9; Pulse Ox 95% ; Pain 6/10; ajs 22:01 BP 134 / 72; Pulse 82; Resp 18; Temp 98.9; Pulse Ox 95% ; Pain 0/10; ajs 19:32 Body Mass Index 18.56 (52.16 kg, 167.64 cm) dd6 Vitals: 19:32 Log In Time: October 25, 2016 at 19:30. dd6 ED Course: 19:32 Patient visited by Ronny Vann PCA. dd6 19:32 Juliette Greenberg is Private Physician. dd6 19:32 Patient moved to Waiting dd6 19:33 Patient moved to Pre RCE dd6 19:39 Triage Initiated ld5 19:42 Patient visited by Patricia Yanes,SUPA. ld5 19:44 Patient visited by Patricia Yanes RN. ld5 20:05 Patient moved to Triage 1 jo3 20:06 Chato Noble RPA-C is PHCP. ck7 20:06 Gregory Vazquez DO is Attending Physician. ck7 20:06 Patient visited by Chato Noble RPA-C. ck7 20:16 Patient moved to I4 / M4 jo3 20:25 Patient visited by Kendra Hilton RN. kas2 20:37 Patient visited by Kendra Hilton RN. kas2 20:53 Patient visited by Yessi Wiggins. ajs 21:07 MED Profile Sent. ajs 21:07 CBC with Diff Sent. ajs 21:09 Inserted saline lock: 22 gauge in left antecubital area and blood collected. The kas2 patient tolerated the procedure well. No procedures done that require assistance. 21:10 Patient visited by Kendra Hilton RN. kas2 21:34 Patient visited by Kendra Hilton RN. kas2 22:01 Patient visited by Yessi Wiggins. ajs 22:01 Arsenio Villegas, OB is Referral Physician. ck7 22:11 The patient / caregiver is instructed regarding the plan of care and ED course. kas2 22:11 Discontinued IV bleeding controlled, pressure dressing applied, No redness/swelling at kas2 site. 22:33 Patient name changed from Nicholette\\S\\Brille\\S\\Dawson\\S\\ to Nicholette\\S\\ \\S\\Dawson. EDMS 22:35 [facility] Payment Agreement was scanned into [employer] and attached to record. gjb 10/26 07:42 T-Sheet-- Draft Copy was scanned into SoftRun and attached to record. [facility] Administered Medications: 10/25 21:09 Drug: NS 0.9% 1000 ml [sodium chloride 0.9 % intravenous solution] Route: IV; Rate: kas2 bolus; Site: left antecubital; 22:12 Follow up: IV Status: Completed infusion; IV Intake: 500ml kas2 21:09 Drug: HYDROcodone-acetaminophen 1 tabs [hydrocodone 5 mg-acetaminophen 325 mg tablet (1 kas2 tabs)] Route: PO; 21:09 Drug: Trimethoprim-Sulfamethoxazole 1 tabs [sulfamethoxazole 800 mg-trimethoprim 160 mg kas2 tablet (1 tabs)] Route: PO; 22:11 Drug: HYDROcodone-acetaminophen 4 pack- 1 packets [hydrocodone 5 mg-acetaminophen 325 nn1 mg tablet (1 tabs)] {Co-Signature: kas2 (Kendra Hilton RN).} Route: PO; Intake: 22:12 IV: 500.00ml; Total: 500.00ml. kas2 Order Results: Lab Order: CBC with Diff; SPEC'M 10/25/16 21:02 Test: WHITE BLOOD COUNT; Value: 13.3; Range: 4.0-10.0; Abnormal: Above high normal; Units: K/mm3; Status: F Test: RED BLOOD COUNT; Value: 5.09; Range: 4.00-5.40; Units: M/mm3; Status: F Test: HEMOGLOBIN; Value: 14.0; Range: 12.0-16.0; Units: g/dl; Status: F Test: HEMATOCRIT; Value: 41.6; Range: 36.0-47.0; Units: %; Status: F Test: MEAN CORPUSCULAR VOLUME; Value: 81.8; Range: 80.0-96.0; Units: fl; Status: F Test: MEAN CORPUSCULAR HEMOGLOBIN; Value: 27.4; Range: 27.0-33.0; Units: pg; Status: F Test: MEAN CORPUSCULAR HGB CONC; Value: 33.6; Range: 32.0-36.5; Units: g/dl; Status: F Test: RED CELL DISTRIBUTION WIDTH; Value: 13.7; Range: 11.5-14.5; Units: %; Status: F Test: PLATELET COUNT, AUTOMATED; Value: 339; Range: 150-450; Units: k/mm3; Status: F Test: NEUTROPHILS %; Value: 80.3; Range: 36.0-66.0; Abnormal: Above high normal; Units: %; Status: F Test: LYMPH %; Value: 11.5; Range: 24.0-44.0; Abnormal: Below low normal; Units: %; Status: F Test: MONO %; Value: 6.0; Range: 0.0-5.0; Abnormal: Above high normal; Units: %; Status: F Test: EOS %; Value: 0.4; Range: 0.0-3.0; Units: %; Status: F Test: BASO %; Value: 0.9; Range: 0.0-1.0; Units: %; Status: F Test: LARGE UNSTAINED CELL %; Value: 0.9; Range: 0.0-4.0; Units: %; Status: F Test: NEUTROPHILS #; Value: 10.7; Range: 1.8-7.7; Abnormal: Above high normal; Units: K/mm3; Status: F Test: LYMPH #; Value: 1.7; Range: 1.5-6.5; Units: K/mm3; Status: F Test: MONO #; Value: 0.8; Range: 0.0-0.8; Units: K/mm3; Status: F Test: EOS #; Value: 0.0; Range: 0.0-0.50; Units: K/mm3; Status: F Test: BASO #; Value: 0.1; Range: 0.0-0.2; Units: K/mm3; Status: F Test: LARGE UNSTAINED CELL #; Value: 0.1; Range: 0.0-0.4; Units: K/mm3; Status: F Lab Order: [facility] Profile; SPEC'M 10/25/16 21:02 Test: GLUCOSE, FASTING; Value: 105; Range: 70-105; Units: MG/DL; Status: F Test: BLOOD UREA NITROGEN; Value: 11; Range: 7-18; Units: MG/DL; Status: F Test: CREATININE FOR GFR; Value: 0.97; Range: 0.55-1.02; Units: MG/DL; Status: F Test: GLOMERULAR FILTRATION RATE; Value: > 60.0; Range: >60; Status: F Test: SODIUM LEVEL; Value: 142; Range: 136-145; Units: MEQ/L; Status: F Test: POTASSIUM SERUM; Value: 3.7; Range: 3.5-5.1; Units: MEQ/L; Status: F Test: CHLORIDE LEVEL; Value: 105; Range: 98-107; Units: MEQ/L; Status: F Test: CARBON DIOXIDE LEVEL; Value: 29; Range: 21-32; Units: MEQ/L; Status: F Test: ANION GAP; Value: 8; Range: 8-16; Units: MEQ/L; Status: F Test: CALCIUM LEVEL; Value: 9.6; Range: 8.5-10.1; Units: MG/DL; Status: F Test Note: ; Units are mL/min/1.73 m2 Chronic Kidney Disease Staging per NKF: Stage I & II GFR >=60 Normal to Mildly Decreased Stage III GFR 30-59 Moderately Decreased Stage IV GFR 15-29 Severely Decreased Stage V GFR <15 Very Little GFR Left ESRD GFR <15 on TECHNOLOGY DIRECTOR Outcome: 22:02 Discharge ordered by Provider. ck7 22:10 Discharge Assessment: patient administered narcotics - yes. Pt provided with safe kas2 discharge. The following High Risk Discharge criteria are identified: None. Discharged to home ambulatory, with significant other. Condition: good Condition: stable Condition: improved. No special radiology studies were completed. Property :Personal belongings accompany Pt. 22:13 Patient left the ED. kas2 Signatures: Dispatcher [employer] EDMS Jewell LopezRN RN jo3 Ronny Vann, KIAN SERVICE OPERATIONS MANAGER dd6 Patricia Yanes RN RN [email or web address] Yessi Wiggins Christopher, RPA-C RPA-Cck7 Mali RdzRN RN [email or web address] Olimpia Scott Kim, RN RN kas2 Marybel Smallwood RN2 Corrections: (The following items were deleted from the chart) 19:44 19:38 Presenting complaint: Patient states: Seen here Friday and diagnosed with ld5 infection due to reaction to condom. Presents to ER with increasing vaginal pain. "The meds they gave me aren't working" ld5 Chart Complete MTDD
== END 2016-10-25 22:13 | disposition home or self-care (01) ==
LOC: M ED 19:31
DX: N76.4 Abscess of vulva (principal)

== ENCOUNTER 2016-10-27 20:57 | Emergency (ER) | payer OTHER ==
[2016-10-27] MEDS ORDERED: MORPHINE 4 MG/ML 1ML SYRINGE As Ordered ONE (22:18)
[2016-10-27] MEDS ORDERED: ONDANSETRON 4MG/2ML VIAL (J2405) As Ordered ONE (22:18)
[2016-10-27] MEDS ORDERED: LIDOCAINE 2% MDV 20 ML VIAL As Ordered ONE (23:08)
[2016-10-27] MEDS ORDERED: CLINDAMYCIN 150 MG CAP As Ordered ONE (23:51)
--- NOTE | 2016-10-28 00:01 | EDDOCDS ---
Nurse's Notes [facility] Name: Leandro Dawson Age: 21 yrs Sex: Female : 1995 Arrival Date: 10/27/2016 Time: 20:57 Bed I5 / M5 Private MD: Ariel [facility] Diagnosis: Abscess of Bartholin's gland-not bartholins gland but abscess of labia majora - s/p I and D Presentation: 10/27 21:12 Presenting complaint: Patient states: perineal abscess for a week. draining since this rs3 evening. here for a recheck. Adult Sepsis Screening: The patient does not have new or worsening altered mentation. Patient's respiratory rate is less than 22. Systolic blood pressure is greater than 100. Patient has a qSOFA score of 0- Negative Sepsis Screen. Suicide/Homicide risk assessment- the patient denies having any suicidal and/or homicidal ideations and does not present with any other emotional, behavioral or mental health complaints. Status: The patient is a dependent. Transition of care: patient was not received from another setting of care. 21:12 Acuity: MAX Level 4 rs3 21:12 Method Of Arrival: Walkin/Carried/Asstd rs3 Triage Assessment: 21:14 General: Appears in no apparent distress. Pain: Location: pelvis. HIV screening NA for rs3 this visit Offered previously. 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 [place] 5-325 mg Oral tab 1 tab every 6 hours as needed 2. Bactrim DS 800-160 mg Oral tab 2 times per day - PMHx: none; - PSHx: surgery as ; - Social history: Smoking status: Patient states was never smoker of tobacco. No barriers to communication noted, The patient speaks fluent Taiwanese. - Family history: Not pertinent. - : The pt / caregiver states he / she is not on anticoagulants. Home medication list is obtained from the patient, family members. - Exposure Risk Screening:: None identified. Screenin:58 Screening information is obtained from the patient. Fall risk: No risks identified. jmb Assistance ADL's: requires no assistance with activities of daily living. Abuse/DV Screen: The patient / caregiver reports he/she is: not in a situation that causes fear, pain or injury. Nutritional screening: No deficits noted. home support is adequate. Assessment: 22:57 General: Appears in no apparent distress, comfortable, Behavior is appropriate for age, jmb cooperative. General: Patient laying on stretcher with friend at bedside. NO voiced complaints at this time. . Neurological: Level of Consciousness is awake, alert, obeys commands. Respiratory: Airway is patent Respiratory effort is even, unlabored, Respiratory pattern is regular, symmetrical. Musculoskeletal: Range of motion intact in all extremities. 22:58 Cardiovascular: Capillary refill < 3 seconds Heart tones present Pulses are all jmb present. GI: Abdomen is non- distended Bowel sounds present X 4 quads. Abd is soft X 4 quads. Derm: Skin is pink, warm & dry. 23:34 General: Appears in no apparent distress, comfortable, Behavior is appropriate for age, jmb cooperative, Patient laying on stretcher, appears comfortable. Friend at bedside. NO voiced complaints at this time. . Neurological: Level of Consciousness is awake, alert, obeys commands, Oriented to person, place, time. Respiratory: Airway is patent Respiratory effort is even, unlabored, Respiratory pattern is regular, symmetrical. Vital Signs: 20:59 BP 149 / 76; Pulse 115; Resp 20; Temp 98.9; Pulse Ox 99% ; Weight 52.16 kg; Height 5 elp ft. 6 in. (167.64 cm); Pain 0/10; 23:52 BP 121 / 69 LA Supine (auto/reg); Pulse 85 MON; Resp 18 S; Temp 98.6(O); Pulse Ox 99% cln on R/A; Pain 0/10; 20:59 Body Mass Index 18.56 (52.16 kg, 167.64 cm) el Vitals: 20:59 Log In Time: October 27, 2016 at 20:50. el ED Course: 20:58 Patient visited by Baylee Love PCA. elp 20:58 Patient moved to Waiting elp 20:59 Ariel Jessica is Private Physician. elp 20:59 Patient visited by Baylee Love PCA. elp 21:01 Patient moved to Pre RCE elp 21:14 Triage Initiated rs3 21:38 Patient moved to Triage 3 ms18 21:53 Ba Poe MD is Attending Physician. ml 21:53 Patient visited by Ba Poe MD. ml 21:54 Patient moved to I5 / M5 ml 22:30 Assist provider with I & D: of an abscess on labia. cz 22:58 The patient / caregiver is instructed regarding the plan of care and ED course. jmb 22:58 Inserted saline lock: 20 gauge in left antecubital area. jmb 22:59 Patient visited by Brandon Harvey RN. jmb 23:13 [facility] Payment Agreement was scanned into [email or web address] and attached to record. zo 23:35 Patient visited by Brandon Harvey RN. jmb 23:37 Patient name changed from Nicholette\S\\S\Dawson\S\ to Nicholette\S\ \S\Dawson. EDMS 23:43 Arsenio Villegas OB is Referral Physician. ml 23:53 Patient visited by Lani Loya PCA. cln Administered Medications: 22:42 Drug: morphine 4 mg [morphine 4 mg/mL intravenous cartridge (1 mL)] Route: IVP; Site: jmb left antecubital; 22:42 Drug: Ondansetron 4 mg [ondansetron HCl 2 mg/mL intravenous solution (2 mL)] Route: jmb IVP; Site: left antecubital; 23:58 Drug: Clindamycin 300 mg [clindamycin 150 mg capsule (2 caps)] Route: PO; cz Order Results: There are currently no results for this order. Outcome: 23:44 Discharge ordered by Provider. ml 23:58 Discharge Assessment: Patient awake, alert and oriented x 3. No cognitive and/or cz functional deficits noted. Patient verbalized understanding of disposition instructions. patient administered narcotics - no. The following High Risk Discharge criteria are identified: None. Discharged to home ambulatory, with significant other. Condition: stable. Discharge instructions given to patient, Instructed on discharge instructions, follow up and referral plans. medication usage, Demonstrated understanding of instructions, medications, Pt was receptive of discharge instructions/ teaching. Prescriptions given X 1. No special radiology studies were completed. Property :Personal belongings accompany Pt. 10/28 00:00 Patient left the ED. cz Signatures: [facility]patcher [facility] Ba Poe MD MD ml Zecher, Calvin, RN RN cz César Cyr Rosemary,SUPA RN rs3 Ivan, Baylee, SITE ACQUISITION MANAGER SITE ACQUISITION MANAGER josep Brandon Harvey RN RN weib Christelle Hilton RN RN ms18 Shalini, Lani, SITE ACQUISITION MANAGER SITE ACQUISITION MANAGER cln MTDD
--- NOTE | 2016-10-28 00:01 | EDDOCDS ---
Physician Documentation [facility] Name: Leandro Dawson Age: 21 yrs Sex: Female : 1995 Arrival Date: 10/27/2016 Time: 20:57 Bed I5 / M5 Private MD: Ariel [facility] Disposition: 10/27/16 23:44 Discharged to Home/Self Care. Impression: Abscess of Bartholin's gland - not bartholins gland but abscess of labia majora - s/p I and D. - Condition is Stable. - Discharge Instructions: Abscess, Incision and Drainage. - Prescriptions for Clindamycin HCl 150 mg Oral Capsule - take 1 capsule by ORAL route 4 times per day for 10 days; 40 capsule. - Medication Reconciliation, Local Pharmacy Hours form. - Follow up: Arsenio Villegas, OB; When: Tomorrow. - Problem is an ongoing problem. - Symptoms have improved. - Notes: i spoke to Dr Nunez who wanted me to I and D your abscess and place a packing. Attempt not to dislodge packing. 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 She will evaluate you completely. return if worsening symptoms - fever, increasing pain, increasing swelling or other concerns. Attempt to keep opening open an allow drainage Historical: - Allergies: no known allergies; - Home Meds: 1. [place] 5-325 mg Oral tab 1 tab every 6 hours as needed 2. Bactrim DS 800-160 mg Oral tab 2 times per day - PMHx: none; - PSHx: surgery as infant; - Social history: Smoking status: Patient states was never smoker of tobacco. No barriers to communication noted, The patient speaks fluent Occitan. - Family history: Not pertinent. - : The pt / caregiver states he / she is not on anticoagulants. Home medication list is obtained from the patient, family members. - Exposure Risk Screening:: None identified. 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 6 in. (167.64 cm); Pain 0/10; 23:52 BP 121 / 69 LA Supine (auto/reg); Pulse 85 MON; Resp 18 S; Temp 98.6(O); Pulse Ox 99% cln on R/A; Pain 0/10; 20:59 Body Mass Index 18.56 (52.16 kg, 167.64 cm) elp Procedures: 23:42 I & D: Incision and drainage was performed for an abscess of the right labia majora ml Prepped with Betadine, Anesthetized with 3 ml's 2% Lidocaine. Incised with #11 blade. Drained moderate amount purulent fluid. Loculations removed. Cultures obtained. Abscess cavity explored. Packed with iodoform gauze, the patient tolerated the procedure well, spoke to dr nunez and recommends I and D of abscess w attempt at placing wick which i was able to . MDM: 22:09 IV Saline Lock ordered. ml 22:09 morphine 4 mg IVP once ordered. ml 22:09 Ondansetron 4 mg IVP once ordered. ml 22:11 Wound Culture - All Other Sources Ordered. EDMS 23:08 Financial registration complete. zo 23:13 [facility] Payment Agreement was scanned into [employer] ([employer]And) and attached to record. zo 23:42 Clindamycin 300 mg PO once ordered. ml Administered Medications: 22:42 Drug: morphine 4 mg [morphine 4 mg/mL intravenous cartridge (1 mL)] Route: IVP; Site: jmb left antecubital; 22:42 Drug: Ondansetron 4 mg [ondansetron HCl 2 mg/mL intravenous solution (2 mL)] Route: jmb IVP; Site: left antecubital; 23:58 Drug: Clindamycin 300 mg [clindamycin 150 mg capsule (2 caps)] Route: PO; cz Signatures: Dispatcher [employer] EDMS Ba Poe MD MD ml Zecher, Calvin, RN RN cz Olin, Zoeann zo Soosairaj, Rosemary, RN RN rs3 Brandon Harvey RN RN jmb The chart was reviewed and I authenticate all verbal orders and agree with the evaluation and treatment provided.Attachments: 23:13 [facility] Payment Agreement zo MTDD
--- NOTE | 2016-10-30 01:01 | EDDOCDS ---
Nurse's Notes [facility] Name: Leandro Dawson Age: 21 yrs Sex: Female : 1995 Arrival Date: 10/27/2016 Time: 20:57 Bed I5 / M5 Private MD: Ariel [facility] Diagnosis: Abscess of Bartholin's gland-not bartholins gland but abscess of labia majora - s/p I and D Presentation: 10/27 21:12 Presenting complaint: Patient states: perineal abscess for a week. draining since this rs3 evening. here for a recheck. Adult Sepsis Screening: The patient does not have new or worsening altered mentation. Patient's respiratory rate is less than 22. Systolic blood pressure is greater than 100. Patient has a qSOFA score of 0- Negative Sepsis Screen. Suicide/Homicide risk assessment- the patient denies having any suicidal and/or homicidal ideations and does not present with any other emotional, behavioral or mental health complaints. Status: The patient is a dependent. Transition of care: patient was not received from another setting of care. 21:12 Acuity: MAX Level 4 rs3 21:12 Method Of Arrival: Walkin/Carried/Asstd rs3 Triage Assessment: 21:14 General: Appears in no apparent distress. Pain: Location: pelvis. HIV screening NA for rs3 this visit Offered previously. 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 [place] 5-325 mg Oral tab 1 tab every 6 hours as needed 2. Bactrim DS 800-160 mg Oral tab 2 times per day - PMHx: none; - PSHx: surgery as ; - Social history: Smoking status: Patient states was never smoker of tobacco. No barriers to communication noted, The patient speaks fluent Brazilian. - Family history: Not pertinent. - : The pt / caregiver states he / she is not on anticoagulants. Home medication list is obtained from the patient, family members. - Exposure Risk Screening:: None identified. Screenin:58 Screening information is obtained from the patient. Fall risk: No risks identified. jmb Assistance ADL's: requires no assistance with activities of daily living. Abuse/DV Screen: The patient / caregiver reports he/she is: not in a situation that causes fear, pain or injury. Nutritional screening: No deficits noted. home support is adequate. Assessment: 22:57 General: Appears in no apparent distress, comfortable, Behavior is appropriate for age, jmb cooperative. General: Patient laying on stretcher with friend at bedside. NO voiced complaints at this time. . Neurological: Level of Consciousness is awake, alert, obeys commands. Respiratory: Airway is patent Respiratory effort is even, unlabored, Respiratory pattern is regular, symmetrical. Musculoskeletal: Range of motion intact in all extremities. 22:58 Cardiovascular: Capillary refill < 3 seconds Heart tones present Pulses are all jmb present. GI: Abdomen is non- distended Bowel sounds present X 4 quads. Abd is soft X 4 quads. Derm: Skin is pink, warm & dry. 23:34 General: Appears in no apparent distress, comfortable, Behavior is appropriate for age, jmb cooperative, Patient laying on stretcher, appears comfortable. Friend at bedside. NO voiced complaints at this time. . Neurological: Level of Consciousness is awake, alert, obeys commands, Oriented to person, place, time. Respiratory: Airway is patent Respiratory effort is even, unlabored, Respiratory pattern is regular, symmetrical. Vital Signs: 20:59 BP 149 / 76; Pulse 115; Resp 20; Temp 98.9; Pulse Ox 99% ; Weight 52.16 kg; Height 5 elp ft. 6 in. (167.64 cm); Pain 0/10; 23:52 BP 121 / 69 LA Supine (auto/reg); Pulse 85 MON; Resp 18 S; Temp 98.6(O); Pulse Ox 99% cln on R/A; Pain 0/10; 20:59 Body Mass Index 18.56 (52.16 kg, 167.64 cm) el Vitals: 20:59 Log In Time: October 27, 2016 at 20:50. el ED Course: 20:58 Patient visited by Baylee Love PCA. elp 20:58 Patient moved to Waiting elp 20:59 Ariel Jessica is Private Physician. elp 20:59 Patient visited by Baylee Love PCA. elp 21:01 Patient moved to Pre RCE elp 21:14 Triage Initiated rs3 21:38 Patient moved to Triage 3 ms18 21:53 Ba Poe MD is Attending Physician. ml 21:53 Patient visited by Ba Poe MD. ml 21:54 Patient moved to I5 / M5 ml 22:30 Assist provider with I & D: of an abscess on labia. cz 22:58 The patient / caregiver is instructed regarding the plan of care and ED course. jmb 22:58 Inserted saline lock: 20 gauge in left antecubital area. jmb 22:59 Patient visited by Brandon Harvey RN. jmb 23:13 [facility] Payment Agreement was scanned into [employer] and attached to record. zo 23:35 Patient visited by Brandon Harvey RN. jmb 23:37 Patient name changed from Nicholette\S\\S\Dawson\S\ to Nicholette\S\ \S\Dawson. EDMS 23:43 Arsenio Villegas, OB is Referral Physician. ml 23:53 Patient visited by Lani Loya PCA. cln 10/28 11:16 T-Sheet-- Draft Copy was scanned into [employer] and attached to record. gb 10/29 17:11 Lab / Xray Callback was scanned into [employer] and attached to record. lbd Administered Medications: 10/27 22:42 Drug: morphine 4 mg [morphine 4 mg/mL intravenous cartridge (1 mL)] Route: IVP; Site: jmb left antecubital; 22:42 Drug: Ondansetron 4 mg [ondansetron HCl 2 mg/mL intravenous solution (2 mL)] Route: jmb IVP; Site: left antecubital; 23:58 Drug: Clindamycin 300 mg [clindamycin 150 mg capsule (2 caps)] Route: PO; cz Order Results: Lab Order: Wound Culture - All Other Sources; SPEC'M 10/27/16 22:00 Test: WOUND CULTURE; Value: <EXTERNAL COMMENT eCWMed> FULL REPORT IN LAB NOTES (eCW and Medent).; Status: F Test: WOUND CULTURE; Value: ORGANISM 1: STAPHYLOCOCCUS AUREUS; Status: F Test: WOUND CULTURE; Value: STAPHYLOCOCCUS AUREUS; Status: F Test: WOUND CULTURE; Value: QUANTITY OF GROWTH HEAVY; Status: F Test: WOUND CULTURE; Value: GRAM POS SENSI - VITEK 67; Status: F Test: WOUND CULTURE; Value: Method: VIT2; Status: F Test: WOUND CULTURE; Value: TETRACYCLINE <=1 S; Status: F Test: WOUND CULTURE; Value: PENICILLIN G 0.12 R; Status: F Test: WOUND CULTURE; Value: TRIMETHOPRIM/SULFAMETHOXAZOLE <=10 S; Status: F Test: WOUND CULTURE; Value: ERYTHROMYCIN <=0.25 S; Status: F Test: WOUND CULTURE; Value: GENTAMICIN <=0.5 S; Status: F Test: WOUND CULTURE; Value: CLINDAMYCIN <=0.25 S; Status: F Test: WOUND CULTURE; Value: OXACILLIN <=0.25 S; Status: F Test: WOUND CULTURE; Value: VANCOMYCIN <=0.5 S; Status: F Test: WOUND CULTURE; Value: LINEZOLID (ZYVOX) 2 S; Status: F Outcome: 23:44 Discharge ordered by Provider. ml 23:58 Discharge Assessment: Patient awake, alert and oriented x 3. No cognitive and/or cz functional deficits noted. Patient verbalized understanding of disposition instructions. patient administered narcotics - no. The following High Risk Discharge criteria are identified: None. Discharged to home ambulatory, with significant other. Condition: stable. Discharge instructions given to patient, Instructed on discharge instructions, follow up and referral plans. medication usage, Demonstrated understanding of instructions, medications, Pt was receptive of discharge instructions/ teaching. Prescriptions given X 1. No special radiology studies were completed. Property :Personal belongings accompany Pt. 10/28 00:00 Patient left the ED. cz 10/29 15:59 Lab/X-ray follow up: wound culture results reviewed with July Lizarraga NP and no change in kcs treatment needed. Signatures: Dispatcher MedHost EDMS Ba Poe MD MD ml Sleeman, Kacey, RN RN kcs Abida Allison, Slasher Unit lbd Jarret Hauser RN RN cz Poonam De La Rosa, Reg Reg César Wall Rosemary, RN RN rs3 Bayele Love, CHIEF SCIENCE OFFICER CHIEF SCIENCE OFFICER josep Brandon Harvey RN RN jmb Smith, Mallory, RN RN [id number] Lani Loya, CHIEF SCIENCE OFFICER CHIEF SCIENCE OFFICER cln Chart Complete MTDD
--- NOTE | 2016-10-30 01:01 | EDDOCDS ---
Physician Documentation [facility] Name: Leandro Dawson Age: 21 yrs Sex: Female : 1995 Arrival Date: 10/27/2016 Time: 20:57 Bed I5 / M5 Private MD: Ariel [facility] Disposition: 10/27/16 23:44 Discharged to Home/Self Care. Impression: Abscess of Bartholin's gland - not bartholins gland but abscess of labia majora - s/p I and D. - Condition is Stable. - Discharge Instructions: Abscess, Incision and Drainage. - Prescriptions for Clindamycin HCl 150 mg Oral Capsule - take 1 capsule by ORAL route 4 times per day for 10 days; 40 capsule. - Medication Reconciliation, Local Pharmacy Hours form. - Follow up: Arsenio Villegas, OB; When: Tomorrow. - Problem is an ongoing problem. - Symptoms have improved. - Notes: i spoke to Dr Nunez who wanted me to I and D your abscess and place a packing. Attempt not to dislodge packing. 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 She will evaluate you completely. return if worsening symptoms - fever, increasing pain, increasing swelling or other concerns. Attempt to keep opening open an allow drainage Historical: - Allergies: no known allergies; - Home Meds: 1. [place] 5-325 mg Oral tab 1 tab every 6 hours as needed 2. Bactrim DS 800-160 mg Oral tab 2 times per day - PMHx: none; - PSHx: surgery as ; - Social history: Smoking status: Patient states was never smoker of tobacco. No barriers to communication noted, The patient speaks fluent Lithuanian. - Family history: Not pertinent. - : The pt / caregiver states he / she is not on anticoagulants. Home medication list is obtained from the patient, family members. - Exposure Risk Screening:: None identified. 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 6 in. (167.64 cm); Pain 0/10; 23:52 BP 121 / 69 LA Supine (auto/reg); Pulse 85 MON; Resp 18 S; Temp 98.6(O); Pulse Ox 99% cln on R/A; Pain 0/10; 20:59 Body Mass Index 18.56 (52.16 kg, 167.64 cm) elp Procedures: 23:42 I & D: Incision and drainage was performed for an abscess of the right labia majora ml Prepped with Betadine, Anesthetized with 3 ml's 2% Lidocaine. Incised with #11 blade. Drained moderate amount purulent fluid. Loculations removed. Cultures obtained. Abscess cavity explored. Packed with iodoform gauze, the patient tolerated the procedure well, spoke to dr nunez and recommends I and D of abscess w attempt at placing wick which i was able to . MDM: 22:09 IV Saline Lock ordered. ml 22:09 morphine 4 mg IVP once ordered. ml 22:09 Ondansetron 4 mg IVP once ordered. ml 22:11 Wound Culture - All Other Sources Ordered. EDMS 23:08 Financial registration complete. zo 23:13 [facility] Payment Agreement was scanned into [employer] and attached to record. zo 23:42 Clindamycin 300 mg PO once ordered. ml 10/28 11:16 T-Sheet-- Draft Copy was scanned into [employer] and attached to record. gb 10/29 17:11 Lab / Xray Callback was scanned into [employer] and attached to record. lbd Administered Medications: 10/27 22:42 Drug: morphine 4 mg [morphine 4 mg/mL intravenous cartridge (1 mL)] Route: IVP; Site: b left antecubital; 22:42 Drug: Ondansetron 4 mg [ondansetron HCl 2 mg/mL intravenous solution (2 mL)] Route: jmb IVP; Site: left antecubital; 23:58 Drug: Clindamycin 300 mg [clindamycin 150 mg capsule (2 caps)] Route: PO; cz Signatures: Dispatcher MedHost EDMS Ba Poe MD MD ml Daly, Linda, Academic Program Specialist Unit lbd Jarret Hauser RN RN cz Barnhardt, Gloria, Reg Reg gb Andrew, Nancie Medel RN RN rs3 Brandon Harvey RN RN jmb The chart was reviewed and I authenticate all verbal orders and agree with the evaluation and treatment provided.Attachments: 23:13 [facility] Payment Agreement zo 10/28 11:16 T-Sheet-- Draft Copy gb Chart Complete MTDD
--- NOTE | 2016-10-30 01:01 | EDDOCDS ---
Physician Documentation [facility] Name: Leandro Dawson Age: 21 yrs Sex: Female : 1995 Arrival Date: 10/27/2016 Time: 20:57 Bed I5 / M5 Private MD: Ariel [facility] Disposition: 10/27/16 23:44 Discharged to Home/Self Care. Impression: Abscess of Bartholin's gland - not bartholins gland but abscess of labia majora - s/p I and D. - Condition is Stable. - Discharge Instructions: Abscess, Incision and Drainage. - Prescriptions for Clindamycin HCl 150 mg Oral Capsule - take 1 capsule by ORAL route 4 times per day for 10 days; 40 capsule. - Medication Reconciliation, Local Pharmacy Hours form. - Follow up: Arsenio Villegas, OB; When: Tomorrow. - Problem is an ongoing problem. - Symptoms have improved. - Notes: i spoke to Dr Nunez who wanted me to I and D your abscess and place a packing. Attempt not to dislodge packing. 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 She will evaluate you completely. return if worsening symptoms - fever, increasing pain, increasing swelling or other concerns. Attempt to keep opening open an allow drainage Historical: - Allergies: no known allergies; - Home Meds: 1. [place] 5-325 mg Oral tab 1 tab every 6 hours as needed 2. Bactrim DS 800-160 mg Oral tab 2 times per day - PMHx: none; - PSHx: surgery as ; - Social history: Smoking status: Patient states was never smoker of tobacco. No barriers to communication noted, The patient speaks fluent Lithuanian. - Family history: Not pertinent. - : The pt / caregiver states he / she is not on anticoagulants. Home medication list is obtained from the patient, family members. - Exposure Risk Screening:: None identified. 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 6 in. (167.64 cm); Pain 0/10; 23:52 BP 121 / 69 LA Supine (auto/reg); Pulse 85 MON; Resp 18 S; Temp 98.6(O); Pulse Ox 99% cln on R/A; Pain 0/10; 20:59 Body Mass Index 18.56 (52.16 kg, 167.64 cm) elp Procedures: 23:42 I & D: Incision and drainage was performed for an abscess of the right labia majora ml Prepped with Betadine, Anesthetized with 3 ml's 2% Lidocaine. Incised with #11 blade. Drained moderate amount purulent fluid. Loculations removed. Cultures obtained. Abscess cavity explored. Packed with iodoform gauze, the patient tolerated the procedure well, spoke to dr nunez and recommends I and D of abscess w attempt at placing wick which i was able to . MDM: 22:09 IV Saline Lock ordered. ml 22:09 morphine 4 mg IVP once ordered. ml 22:09 Ondansetron 4 mg IVP once ordered. ml 22:11 Wound Culture - All Other Sources Ordered. EDMS 23:08 Financial registration complete. zo 23:13 [facility] [place] Agreement was scanned into [employer] and attached to record. zo 23:42 Clindamycin 300 mg PO once ordered. ml 10/28 11:16 T-Sheet-- Draft Copy was scanned into [employer] and attached to record. gb 10/29 17:11 Lab / Xray Callback was scanned into [employer] and attached to record. lbd Administered Medications: 10/27 22:42 Drug: morphine 4 mg [morphine 4 mg/mL intravenous cartridge (1 mL)] Route: IVP; Site: b left antecubital; 22:42 Drug: Ondansetron 4 mg [ondansetron HCl 2 mg/mL intravenous solution (2 mL)] Route: jmb IVP; Site: left antecubital; 23:58 Drug: Clindamycin 300 mg [clindamycin 150 mg capsule (2 caps)] Route: PO; cz Signatures: Dispatcher Med[employer] EDMS Ba Poe MD MD ml Daly, Linda, Cyanide Pot Tender Unit lbd Jarret Hauser RN RN cz Barnhardt, Gloria, Reg Reg gb [place], Nancie Medel RN RN rs3 Brandon Harvey RN RN jmb The chart was reviewed and I authenticate all verbal orders and agree with the evaluation and treatment provided.Attachments: 23:13 [facility] Payment Agreement zo 10/28 11:16 T-Sheet-- Draft Copy gb Chart Complete MTDD
== END 2016-10-28 | disposition home or self-care (01) ==
LOC: M ED 20:57
DX: N76.4 Abscess of vulva (principal); Z79.2 Long term (current) use of antibiotics
CPT/HCPCS: 10060; 87070; 87077; 87186; 96374; 96375; 99284; J2405